=== PATIENT | male | born 1985 | race Caucasian/White ===

== ENCOUNTER 2018-10-31 18:16 | Inpatient (IN) | payer BC ==
[2018-10-31] MEDS ORDERED: Fentanyl 100 MCG/2 ML VIAL ONE ×2 (18:47→19:31)
[2018-10-31 19:19] LABS: #Basophils 0.1 thou/uL (0.0-0.2); #Eosinphils 0.2 thou/uL (0.0-0.7); #Lymphocytes 1.2 thou/uL (1.20-3.40); #Monocytes 0.7 thou/uL (0.11-0.59); #Neutrophils 14.6 thou/uL (1.40-6.50); %Basophils 0.3 % (0.0-1.0); %Eosinophils 1.4 % (0.0-10.0); %Lymphocytes 7.2 % (21.0-51.0); %Monocytes 4.2 % (0.0-10.0); %Neutrophils 86.8 % (42.0-75.0); Mean Corpuscular HGB CONC 32.9 g/dL (32.0-36.0); Mean Corpuscular Hemoglobin 29.1 pg (27.0-31.0); Mean Corpuscular Volume 88.4 fL (78.0-98.0); Mean Platelet Volume 7.8 fL (7.4-10.4); Platelet Count 303 thou/uL (130-400); RBC Distribution Width 12.1 % (11.5-14.5); Red Blood Cell (RBC) Count 5.15 mill/uL (4.70-6.10); White Blood Cell (WBC) Count 16.8 thou/uL (4.8-10.8)
[2018-10-31 19:30] LABS: INR-International Normal Ratio 0.9; Prothrombin Time 12.7 SEC (12.0-14.7)
[2018-10-31] MEDS ORDERED: Ondansetron PF 4 MG/2 ML Vial ONE (19:31)
--- NOTE | 2018-10-31 19:33 | RAD ---
RIGHT ANKLE THREE VIEWS: HISTORY: Trauma to ankle region. FINDINGS: There is a transversely oriented distal fibula fracture, which is slightly greater than one shaft-wid th displaced, and an obliquely oriented, slightly comminuted fracture involving the distal tibial sha ft. The fracture has an oblique orientation, beginning on the lateral side, with fracture along the more superolateral cortex, with fracture extension in an oblique fashion to near the metaphyseal lu on, on the medial side of the tibia. There is a small comminuted fragment present. IMPRESSION: Distal tibia and fibula fractures. POS: [facility]
[2018-10-31 19:40] LABS: ALT (SGPT) 22 U/L (8-55); AST (SGOT) 22 U/L (5-34); Albumin 4.7 g/dL (3.5-5.0); Alkaline Phosphatase 155 U/L (40-150); Anion Gap 13 mmol/L (10-20); BUN (Urea Nitrogen) 17 mg/dL (8.9-20.6); Bilirubin, Total 0.3 mg/dL (0.2-1.2); Calc. Creatinine Clearance 0 mL/min (70-130); Calcium 9.7 mg/dL (7.8-10.44); Carbon Dioxide 22 mmol/L (22-29); Chloride 106 mmol/L (98-107); Estimated GFR-MDRD 75; Globulin 2.4 g/dL (2.4-3.5); Glucose 124 mg/dL (70-105); Potassium 3.7 mmol/L (3.5-5.1); Protein, Total 7.1 g/dL (6.0-8.3); Sodium 137 mmol/L (136-145)
--- NOTE | 2018-10-31 20:51 | RAD ---
AP PELVIS: HISTORY: Trauma. FINDINGS: The pelvic ring is intact without evidence of fracture. There is no diastasis of the symphysis. IMPRESSION: Negative anterior-posterior pelvis. POS: [facility]
[2018-10-31] MEDS ORDERED: Dextrose 50% Abboject 50 ML SYRINGE SLOW IVP PRN (21:03)
[2018-10-31] MEDS ORDERED: hydrALAZINE 20 MG/ML VIAL SLOW IVP PRN (21:03)
[2018-10-31] MEDS ORDERED: Ondansetron PF 4 MG/2 ML Vial IVP PRN (21:03)
[2018-10-31] MEDS ORDERED: Promethazine HCl 25 MG/ML VIAL IM PRN (21:03)
[2018-10-31] MEDS ORDERED: Dextrose 5% in Water 1,000 ML IV PRN (21:03)
[2018-10-31] MEDS: Famotidine/PF 20 mg/2ml Vial SLOW IVP SCH (21:26)
[2018-10-31] MEDS: Senokot S 8.6-50 MG TAB PO SCH (21:26)
[2018-10-31] MEDS: Acetaminophen 1,000 MG in Premix Bag 1 BAG IVPB SCH (21:26)
[2018-10-31] MEDS ORDERED: Morphine 4 MG/ML VIAL SLOW IVP PRN (21:28)
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
[2018-10-31 23:20] VITALS: BMI 25.8
[2018-10-31] MEDS: Ketorolac Tromethamine 30 MG/ML VIAL IVP SCH (23:22)
[2018-10-31] MEDS: Sodium Chloride 0.9% 1,000 ML IV SCH (23:24)
[2018-10-31] MEDS: Morphine 4 MG/ML VIAL SLOW IVP PRN (23:24)
[2018-11-01] MEDS: Acetaminophen 1,000 MG in Premix Bag 1 BAG IVPB SCH ×4 (04:22→21:55)
[2018-11-01] MEDS: Sodium Chloride 0.9% 1,000 ML IV SCH ×2 (04:24→16:31)
[2018-11-01] MEDS: Ketorolac Tromethamine 30 MG/ML VIAL IVP SCH ×4 (05:30→23:48)
[2018-11-01] MEDS: Morphine 4 MG/ML VIAL SLOW IVP PRN ×3 (05:31→20:33)
[2018-11-01 06:59] LABS: #Eosinphils 0.2 thou/uL (0.0-0.7); #Monocytes 0.8 thou/uL (0.11-0.59); #Neutrophils 8.6 thou/uL (1.40-6.50); %Basophils 0.3 % (0.0-1.0); %Eosinophils 2.2 % (0.0-10.0); %Lymphocytes 9.8 % (21.0-51.0); %Monocytes 7.6 % (0.0-10.0); %Neutrophils 80.2 % (42.0-75.0); Hemoglobin 13.2 g/dL (14.0-18.0); Mean Corpuscular HGB CONC 32.6 g/dL (32.0-36.0); Mean Corpuscular Hemoglobin 28.8 pg (27.0-31.0); Mean Corpuscular Volume 88.3 fL (78.0-98.0); Mean Platelet Volume 8.2 fL (7.4-10.4); Platelet Count 241 thou/uL (130-400); RBC Distribution Width 12.3 % (11.5-14.5); Red Blood Cell (RBC) Count 4.57 mill/uL (4.70-6.10); White Blood Cell (WBC) Count 10.7 thou/uL (4.8-10.8)
[2018-11-01 07:14] LABS: Phosphorus 2.8 mg/dL (2.3-4.7)
[2018-11-01 07:17] LABS: Anion Gap 10 mmol/L (10-20); BUN (Urea Nitrogen) 16 mg/dL (8.9-20.6); Calc. Creatinine Clearance 113 mL/min (70-130); Calcium 8.6 mg/dL (7.8-10.44); Carbon Dioxide 24 mmol/L (22-29); Chloride 106 mmol/L (98-107); Estimated GFR-MDRD 88; Glucose 102 mg/dL (70-105); Magnesium 1.9 mg/dL (1.6-2.6); Potassium 3.9 mmol/L (3.5-5.1); Sodium 136 mmol/L (136-145)
[2018-11-01] MEDS ORDERED: CEFAZOLIN/Water 2 GM/20 ML SYRINGE SLOW IVP SCH (07:30)
[2018-11-01] MEDS ORDERED: CEFAZOLIN 2 GM/50 ML-DEXTROSE 2 GM in Premix Bag 1 BAG IVPB SCH (07:30)
[2018-11-01] MEDS: Famotidine/PF 20 mg/2ml Vial SLOW IVP SCH ×2 (09:26→20:38)
[2018-11-01] MEDS: Polyethylene Glycol 3350 17 GM Packet PO SCH (09:27)
[2018-11-01] MEDS: Senokot S 8.6-50 MG TAB PO SCH ×2 (09:27→20:38)
[2018-11-01] MEDS ORDERED: Lidocaine 1% PF 5 ML VIAL ONE (10:28)
[2018-11-01] MEDS ORDERED: Ondansetron PF 4 MG/2 ML Vial ONE ×2 (10:28→14:55)
[2018-11-01] MEDS ORDERED: PROPOFOL 200 MG/20 ML VIAL ONE (10:28)
--- NOTE | 2018-11-01 14:22 | PRG ---
DATE OF SERVICE: 11/01/2018 SUBJECTIVE: The patient is currently on the surgical floor. He is status post ground level fall in which he sustained a distal tibia and fibular fracture. He was admitted late last night. He has been n.p.o. after midnight. He is awaiting open reduction and internal fixation by Orthopedics. The patient denies any problems at this time. He states his pain is controlled. OBJECTIVE: VITAL SIGNS: Temperature is 97.8, heart rate is 71, blood pressure is 119/68, respirations are 16, oxygen saturation is 97% on room air. GENERAL: The patient is resting comfortably in bed. He is awake, alert, and oriented x3. [place] Coma Scale is 15. HEENT: Unremarkable. LUNGS: Clear to auscultation with good inspiratory and expiratory effort. HEART: Regular rate and rhythm. ABDOMEN: Soft, flat, and nontender with active bowel sounds. EXTREMITIES: Neurovascularly intact x4. Right lower extremity is immobilized in a posterior splint. LABORATORY FINDINGS: White blood cell count 10.7, hemoglobin 13.2, hematocrit 40.4, and platelets 241. Sodium 136, potassium 3.9, chloride 106, CO2 of 24, BUN 16, creatinine 0.97, glucose 102, magnesium 1.9, and phosphorus 2.8. There are no radiographs reviewed this morning. ASSESSMENT: 1. Status post fall. 2. Right distal tibia and fibular fracture. 3. Pain secondary to trauma. PLAN: Plan will be to continue n.p.o. status. Await surgical procedure. Postoperatively, we will have the patient to begin work with Physical and Occupational Therapy, switch him to p.o. pain medications, and likely discharge tomorrow. The patient was evaluated with Dr. Chadwick this morning during rounds. Job ID: [id number]
[2018-11-01] MEDS ORDERED: Fentanyl 100 MCG/2 ML VIAL ONE ×4 (14:54→19:12)
[2018-11-01] MEDS ORDERED: Promethazine HCl 25 MG/ML VIAL IM PRN (16:41)
[2018-11-01] MEDS ORDERED: Morphine Sulfate 2 MG/ML SYRINGE SLOW IVP PRN (16:41)
[2018-11-01] MEDS ORDERED: Ondansetron HCl/PF 4 MG/2 ML Vial IVP PRN (16:41)
[2018-11-01] MEDS ORDERED: Promethazine HCl 25 MG/ML VIAL SLOW IVP PRN (16:41)
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
[2018-11-01] MEDS ORDERED: Promethazine HCl 25 MG/ML VIAL ONE (19:39)
--- NOTE | 2018-11-01 19:52 | RAD ---
RIGHT TIBIA AND FIBULA TWO VIEWS: 11/01/18 HISTORY: Intraoperative films. This is a series of C-arm films which show plate and screws through the mid shaft of the fibula. Two screws are fixing a distal tibial fracture in place and there is what appears to be an external fixat ion device present. IMPRESSION: Postoperative changes of the right tibia and fibula. POS: [facility]
[2018-11-01] MEDS: CEFAZOLIN 2 GM/50 ML BAG IVPB SCH (21:55)
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
[2018-11-02] MEDS: Sodium Chloride 0.9% 1,000 ML IV SCH (01:07)
[2018-11-02] MEDS: Ketorolac Tromethamine 30 MG/ML VIAL IVP SCH (05:03)
[2018-11-02] MEDS: CEFAZOLIN 2 GM/50 ML BAG IVPB SCH ×2 (05:07→14:41)
[2018-11-02] MEDS: Cyclobenzaprine 10 MG TAB PO PRN ×3 (07:04→23:13)
[2018-11-02] MEDS ORDERED: traMADol HCl 50 MG TAB PO PRN (07:21)
[2018-11-02] MEDS ORDERED: Ibuprofen 600 MG TAB PO SCH ×2 (08:00→11:00)
[2018-11-02] MEDS: Senokot S 8.6-50 MG TAB PO SCH ×2 (09:16→20:18)
[2018-11-02] MEDS: Polyethylene Glycol 3350 17 GM Packet PO SCH (09:16)
[2018-11-02] MEDS: Famotidine/PF 20 mg/2ml Vial SLOW IVP SCH (09:17)
[2018-11-02] MEDS: Acetaminophen 325 MG TAB PO SCH ×3 (09:17→20:17)
[2018-11-02] MEDS: traMADol HCl 50 MG TAB PO PRN (09:26)
[2018-11-02] MEDS: Enoxaparin Sodium 40 MG/0.4 ML SYRINGE SC SCH (11:07)
--- NOTE | 2018-11-02 14:08 | PRG ---
DATE OF SERVICE: 11/02/2018 SUBJECTIVE: The patient is postoperative day 1, hospital day 2, status post a fall, in which he sustained a distal tibia and fibular fracture. Yesterday, the patient underwent external fixator placement for these complex fractures. He tolerated this well. Overnight, he had no issues. His pain is controlled. He is tolerating a diet and is awaiting physical and occupational therapy. The patient is due for 1 more dose of IV antibiotics and will most likely be discharged home tomorrow. PHYSICAL EXAMINATION: VITAL SIGNS: Temperature is 97.8, heart rate 78, blood pressure 124/78, respirations 16, and oxygen saturation 96% on room air. GENERAL: The patient is resting comfortably in bed. He is awake, alert, and oriented x3. [place] Coma Scale is 15. HEENT: Unremarkable. LUNGS: Clear to auscultation with good inspiratory and expiratory effort. HEART: Regular rate and rhythm. ABDOMEN: Soft, flat, and nontender with active bowel sounds. EXTREMITIES: Neurovascularly intact x4. Right lower extremity has external fixator in place with a dressing, which is clean, dry, and intact. LABORATORY DATA: There are no labs or radiographs to review this morning. ASSESSMENT AND PLAN: 1. Status post ground-level fall. 2. Right complex, comminuted distal tibia and fibular fracture, status post external fixator placement. Plan will be to continue supportive care, physical and occupational therapy, then likely discharge home tomorrow. The patient was evaluated with Dr. Chadwick this morning during rounds. Job ID: [id number]
[2018-11-02] MEDS ORDERED: Ibuprofen 200 MG TAB PO SCH (15:00)
[2018-11-02] MEDS: Ibuprofen 200 MG TAB PO SCH ×2 (17:29→23:12)
[2018-11-02] MEDS: Famotidine 20 MG TAB PO SCH (20:17)
[2018-11-03] MEDS: Acetaminophen 325 MG TAB PO SCH ×3 (02:14→14:05)
[2018-11-03] MEDS: Ibuprofen 200 MG TAB PO SCH ×2 (05:03→10:47)
[2018-11-03] MEDS: Polyethylene Glycol 3350 17 GM Packet PO SCH (08:23)
[2018-11-03] MEDS: Enoxaparin Sodium 40 MG/0.4 ML SYRINGE SC SCH (08:23)
[2018-11-03] MEDS: Famotidine 20 MG TAB PO SCH (08:23)
[2018-11-03] MEDS: Senokot S 8.6-50 MG TAB PO SCH (08:23)
[2018-11-03] MEDS: traMADol HCl 50 MG TAB PO PRN ×2 (08:25→15:06)
[2018-11-03 15:53] VITALS: BP 129/81; TEMP 97.7
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
== END 2018-11-03 16:52 | disposition home or self-care (01) | DRG 494 ==
LOC: ERS 18:16 → SURG A 20:57
PROVIDERS: ADMIT Specialist; ATTEND Specialist
PROC: 0QSJ04Z Reposition Right Fibula with Internal Fixation Device, Open Approach (ICD-10-PCS; principal; 2018-11-01)
PROC: 0QSG34Z Reposition Right Tibia with Internal Fixation Device, Percutaneous Approach (ICD-10-PCS; 2018-11-01)
PROC: 0QHG35Z Insertion of External Fixation Device into Right Tibia, Percutaneous Approach (ICD-10-PCS; 2018-11-01)
DX: S82.251A Displaced comminuted fracture of shaft of right tibia, initial encounter for closed fracture (principal); S82.831A Other fracture of upper and lower end of right fibula, initial encounter for closed fracture; Z90.49 Acquired absence of other specified parts of digestive tract; Z90.89 Acquired absence of other organs; Z98.890 Other specified postprocedural states; W17.89XA Other fall from one level to another, initial encounter
CPT/HCPCS: 29515; 36415; 72170; 76000; 80048; 80053; 83735; 84100; 85025; 85610; 85730; 96374; 96375; 96376; C1713; G0390; J0131; J1650; J1885; J2001; J2270; J2405; J2550; J2704; J3010; S0028

== ENCOUNTER 2018-11-25 06:06 | Day surgery (SDC) | payer BC ==
[2018-11-24 11:45] VITALS: BMI 26.4
[2018-11-25] MEDS ORDERED: Fentanyl 100 MCG/2 ML VIAL ONE ×3 (06:21→10:13)
[2018-11-25] MEDS ORDERED: Lidocaine 1% (PF) 30 ML VIAL ONE (06:29)
[2018-11-25] MEDS ORDERED: Bupivacaine/Epinephrine 0.25% 30 ML VIAL ONE (07:48)
[2018-11-25] MEDS ORDERED: Bupivacaine HCl 0.5%/Epinephrine 1:200,000/PF 30 ml Vial ONE (07:48)
[2018-11-25] MEDS ORDERED: Fentanyl 250 MCG/5 ML VIAL ONE (08:08)
[2018-11-25] MEDS ORDERED: Morphine 4 MG/ML VIAL ONE (10:00)
[2018-11-25] MEDS ORDERED: HYDROmorphone 2 MG/ML VIAL ONE (10:35)
--- NOTE | 2018-11-25 11:11 | OP ---
DATE OF PROCEDURE: 11/25/2018 PREOPERATIVE DIAGNOSIS: Right distal tib-fib fracture, status post open reduction and internal fixation right fibula with application of spanning external fixator, right ankle and tibia. POSTOPERATIVE DIAGNOSIS: Right distal tib-fib fracture, status post open reduction and internal fixation right fibula with application of spanning external fixator, right ankle and tibia. PROCEDURES PERFORMED: 1. Open reduction and internal fixation, right distal tibia. 2. Removal of external fixator, right tibia. 3. Irrigation and debridement of the external fixator pin sites. ANESTHESIA: General. STAFFING RN: Stacie Ramirez PA-C TOURNIQUET TIME: 71 minutes at 300 mmHg. IMPLANT: Synthes 2.7/3.5 variable angle LCP distal medial tibial plate. SPECIMEN: External fixator removed. COMPLICATIONS: None. DRAINS: None. OUTCOME: Near-anatomic alignment. INDICATIONS: The patient is a pleasant 33-year-old gentleman who is status post right distal tibia fracture with fibula fracture approximately 3 weeks ago. The patient was found to have severe swelling and significant thinning of the medial skin at the ankle and as such, the fibula was plated at the time of initial injury and the tibia treated with a spanning external fixator. The patient now has skin that has recovered from the initial trauma and as such, is scheduled for a definitive open reduction and internal fixation procedure with removal of external fixator. Informed consent has been obtained. I believe all questions have been answered. DESCRIPTION OF PROCEDURE: The patient was brought to the operating room and a time-out performed followed by induction of general anesthesia. The patient was positioned supine on the OR table. Then, examination under fluoroscopy was performed that showed a fracture that was near anatomically aligned with two previously placed interfragmentary compression screws and the external fixator in place. At this time, it was opted to proceed with removal of the external fixator. This was done with a Betadine prep around each of the pin sites and then simple removal of the pins and the frame. Next, a sterile prep and drape was performed of the right lower extremity. The limb was then exsanguinated with Esmarch bandage, tourniquet inflated to 300 mmHg. A vertical incision was made extending from the tip of the medial malleolus proximally for approximately 2.5 inches after skin was sharply incised. Dissection was carried down bluntly until the saphenous vein was identified. Small branches were coagulated with electrocautery and then the vein reflected anteriorly. The dissection was then carried down to the periosteum of the distal tibia. Next, an appropriate length plate was passed from this incision, passing it subcutaneously along the border of the medial tibia under fluoroscopic guidance. Once appropriately positioned, a total of 5 locking screws were applied distally and then using multiple small puncture wounds proximally, a total of five 3.5 mm cortical screws placed proximally. This provided good stabilization of the fracture in addition to the two previously placed interfragmentary compression screws. At the completion of this, final images were obtained that showed good alignment of the fracture and appropriate positioning of the hardware. The pin sites from the external fixator were then thoroughly cleaned with a combination of curette, freeing up the holes of any fibrinous exudate and then bulb syringe to further clean them. At the end of the procedure, precious were used to close the pin sites along with the small puncture wounds for the proximal screw placement and then the distal wound was then infiltrated with 0.5% Marcaine and then a Xeroform gauze, Webril, and posterior fiberglass splint was applied to the leg. Tourniquet was let down with total time of 71 minutes and the patient was transferred to recovery room in stable condition. There were no complications. He tolerated the procedure well. Job ID: [id number]
[2018-11-25] MEDS ORDERED: HYDROcodone/Acetaminophen 5/325 mg Tablet ONE (12:01)
[2018-11-25] MEDS ORDERED: Promethazine HCl 25 MG/ML VIAL ONE (12:25)
[2018-11-25] MEDS ORDERED: diphenhydrAMINE 25 MG CAP ONE (13:21)
[2018-11-25] MEDS ORDERED: diphenhydrAMINE 50 MG/ML VIAL ONE (13:21)
--- NOTE | 2018-11-25 13:49 | RAD ---
INTRAOPERATIVE FLUOROSCOPY: HISTORY: ORIF. EXPOSURE: 34.7 seconds 0.76 mGy FINDINGS: Three intraoperative fluoroscopic images demonstrate placement of a sideplate with screws along the d istal tibia and fibula. Fracture lucency is noted. IMPRESSION: Fluoroscopy as above. POS: [facility]
[2018-11-25] MEDS ORDERED: Dexamethasone 20 MG/5 ML VIAL ONE (14:20)
[2018-11-25] MEDS ORDERED: Lidocaine 1% PF 5 ML VIAL ONE (14:20)
[2018-11-25] MEDS ORDERED: Ondansetron PF 4 MG/2 ML Vial ONE (14:20)
[2018-11-25] MEDS ORDERED: PROPOFOL 200 MG/20 ML VIAL ONE (14:20)
[2018-11-25] MEDS ORDERED: Ketorolac Tromethamine 30 MG/ML VIAL ONE (14:20)
== END 2018-11-25 14:15 | disposition home or self-care (01) ==
LOC: SDC 06:06
PROVIDERS: ATTEND Orthopaedic Surgery
PROC: 0QSG04Z Reposition Right Tibia with Internal Fixation Device, Open Approach (ICD-10-PCS; principal; 2018-11-25)
PROC: 0QPGX5Z Removal of External Fixation Device from Right Tibia, External Approach (ICD-10-PCS; principal; 2018-11-25)
DX: S82.51XA Displaced fracture of medial malleolus of right tibia, initial encounter for closed fracture (principal); Z91.018 Allergy to other foods; Z79.899 Other long term (current) drug therapy
CPT/HCPCS: 76000; J0670; J1100; J1170; J1200; J1885; J2001; J2270; J2405; J2550; J2704; J3010; Q0163

== ENCOUNTER 2019-03-27 12:41 | Observation (INO) | payer BC ==
[~2019-03-27 12:41] MED LIST: Dexamethasone 20 MG/5 ML VIAL ONE; Lidocaine 1% PF 5 ML VIAL ONE; Ondansetron PF 4 MG/2 ML Vial ONE; PROPOFOL 200 MG/20 ML VIAL ONE
[2019-03-27] MEDS ORDERED: Midazolam HCl 2 mg/2 ml Vial ONE ×2 (13:26→13:30)
[2019-03-27] MEDS ORDERED: Scopolamine 1.5 mg/72 hour Patch ONE (13:27)
[2019-03-27] MEDS ORDERED: Fentanyl 100 MCG/2 ML VIAL ONE ×5 (13:30→17:37)
[2019-03-27] MEDS ORDERED: Morphine 2 MG/ML SYRINGE SLOW IVP PRN (14:51)
[2019-03-27] MEDS ORDERED: Ondansetron PF 4 MG/2 ML Vial SLOW IVP PRN (14:51)
--- NOTE | 2019-03-27 15:14 | RAD ---
TWO VIEWS OF THE RIGHT TIBIA/FIBULA: COMPARISON: 11/01/2018. HISTORY: Status post ORIF of the distal fibula fracture. Hardware removal. FINDINGS/IMPRESSION: Two limited intraoperative fluoroscopic views of the distal right tibia/fibula were submitted for int erpretation. A plate and screws and still seen in the distal fibula. The screws seen in the tibia h ave been removed. POS: [facility]
[2019-03-27] MEDS ORDERED: Promethazine HCl 25 MG/ML VIAL IM PRN (16:27)
[2019-03-27] MEDS ORDERED: Ondansetron HCl/PF 4 MG/2 ML Vial IVP PRN (16:27)
[2019-03-27] MEDS ORDERED: Promethazine HCl 25 MG/ML VIAL SLOW IVP PRN (16:27)
[2019-03-27] MEDS ORDERED: Vancomycin HCl 1 GM in Premix Bag 1 BAG IVPB SCH (21:00)
--- NOTE | 2019-03-27 21:42 | OP ---
DATE OF PROCEDURE: 03/27/2019 PREOPERATIVE DIAGNOSIS: Infected right distal medial tibial plate. POSTOPERATIVE DIAGNOSIS: Infected right distal medial tibial plate. PROCEDURES PERFORMED: 1. Removal of hardware, right distal tibia. 2. Irrigation and debridement, right lower leg. ANESTHESIA: General. COAT EXAMINER: Kash Ruano PA-C. TOURNIQUET TIME: Approximately 60 minutes at 300 mmHg. SPECIMEN: Explanted hardware as well as swab x2 for culture Gram stain. COMPLICATIONS: Infection. DRAINS: None. OUTCOME: Successful removal of hardware and irrigation and debridement of nonviable tissue, right lower leg. INDICATIONS FOR PROCEDURE: Mr. Toscano is a 34-year-old gentleman status post right distal medial fracture, treated initially with an external fixator and then converted to open reduction and internal fixation. The patient has recently gone on to union, but starting approximately 2 weeks ago had some irritation at the proximal medial aspect of the lower leg. This has gone on to develop a wound dehiscence at one of the small stab wounds from the proximal screw holes. With this drainage and some purulent material, we are now proceeding to the operating room for hardware removal and irrigation and debridement from the right tibia. Informed consent has been obtained, I believe all questions answered. DESCRIPTION OF PROCEDURE: The patient was brought to the operating room and a time-out performed followed by induction of general anesthesia. Next, following the sterile prep and drape, the limb was elevated and tourniquet inflated to 300 mmHg. Next, a vertical incision was made following the scar from the hardware placement. After the skin was sharply incised, dissection was carried down bluntly exposing the distal end of the plate. Five small stab wounds were then made further proximally reflecting the insertion sites from the screws in the proximal plate. Next, the locking screws were removed from the distal end of the plate under direct visualization and then the more proximal screws removed by feel from the plate. Once all the hardware had been removed from the plate, the plate was removed without difficulty. Two additional small stab wounds were placed anteriorly, this reflecting the interfragmentary compression screws were applied at the time of his application of external fixator. These two screws were also removed without difficulty. Once all the hardware had been removed, AP, lateral, and C-arm images were obtained to confirm successful removal of all tibial hardware and then the wounds were irrigated with 3 L of normal saline using Pulsavac. It should be noted that prior to this irrigation procedure that swabs were used to swab the one track of infection as well as the screw hole just distal to this. Following the irrigation, no further nonviable tissue was encountered. The wounds were closed with 0 Vicryl, 2-0 Vicryl, and nylon for the longitudinal incision. The small stab wounds closed with simple nylon suture. Xeroform gauze, Webril, and a fiberglass splint were applied and then the patient was transferred to the recovery room in stable condition. There were no complications. Tourniquet was let down at the completion of dressing. Job ID: [id number]
[2019-03-27] MEDS: Aspirin 81 mg Enteric Coated Tablet PO SCH (22:00)
[2019-03-27] MEDS: CEFAZOLIN 2 GM in Premix Bag 1 BAG IVPB SCH (22:00)
[2019-03-27] MEDS: HYDROcodone/Acetaminophen 10/325 mg Tablet PO PRN (22:01)
[2019-03-27 22:26] VITALS: BMI 26.1
[2019-03-27] MEDS: Vancomycin HCl 1.25 GM in Sodium Chloride 0.9% 250 ML 250 ML IVPB SCH (23:51)
[2019-03-28] MEDS: HYDROcodone/Acetaminophen 10/325 mg Tablet PO PRN ×4 (02:59→17:32)
[2019-03-28] MEDS: CEFAZOLIN 2 GM in Premix Bag 1 BAG IVPB SCH ×2 (05:32→15:21)
[2019-03-28 06:21] LABS: #Basophils 0.1 thou/uL (0.0-0.2); #Lymphocytes 0.9 thou/uL (1.20-3.40); #Monocytes 0.8 thou/uL (0.11-0.59); #Neutrophils 11.5 thou/uL (1.40-6.50); %Basophils 0.8 % (0.0-1.0); %Eosinophils 0.2 % (0.0-10.0); %Monocytes 5.9 % (0.0-10.0); %Neutrophils 86.2 % (42.0-75.0); Hemoglobin 13.1 g/dL (14.0-18.0); Mean Corpuscular HGB CONC 32.9 g/dL (32.0-36.0); Mean Corpuscular Hemoglobin 28.8 pg (27.0-31.0); Mean Corpuscular Volume 87.5 fL (78.0-98.0); Mean Platelet Volume 7.6 fL (7.4-10.4); Platelet Count 323 thou/uL (130-400); Red Blood Cell (RBC) Count 4.55 mill/uL (4.70-6.10); White Blood Cell (WBC) Count 13.4 thou/uL (4.8-10.8)
[2019-03-28] MEDS: Aspirin 81 mg Enteric Coated Tablet PO SCH (08:42)
[2019-03-28] MEDS: Vancomycin HCl 1.25 GM in Sodium Chloride 0.9% 250 ML 250 ML IVPB SCH (13:01)
[2019-03-28 19:22] VITALS: BP 138/79; TEMP 98.3
== END 2019-03-28 19:35 | disposition home or self-care (01) ==
LOC: SDC 12:41 → SJJU 14:51
PROVIDERS: ADMIT Orthopaedic Surgery; ATTEND Orthopaedic Surgery
PROC: 0QPG04Z Removal of Internal Fixation Device from Right Tibia, Open Approach (ICD-10-PCS; principal; 2019-03-28)
DX: T84.622A Infection and inflammatory reaction due to internal fixation device of right tibia, initial encounter (principal); B95.61 Methicillin susceptible Staphylococcus aureus infection as the cause of diseases classified elsewhere; Z79.2 Long term (current) use of antibiotics; Z91.018 Allergy to other foods; Z91.02 Food additives allergy status; Z98.890 Other specified postprocedural states
CPT/HCPCS: 36415; 76000; 85025; 87070; 87077; 87186; 87205; 96361; 96365; 96366; 96367; 96376; G0378; J0690; J1100; J2001; J2250; J2405; J2704; J3010; J3370; J7050

== ENCOUNTER 2021-01-30 08:28 | Outpatient (CLI) | payer OTHER | END 2021-01-30 08:29 | disposition home or self-care (01) | LOC: ULT 08:28 | PROVIDERS: ATTEND Internal Medicine Gastroenterology | DX: R74.8 Abnormal levels of other serum enzymes (principal); K76.0 Fatty (change of) liver, not elsewhere classified; K80.20 Calculus of gallbladder without cholecystitis without obstruction | CPT/HCPCS: 76705 ==

== ENCOUNTER 2021-02-18 07:40 | Outpatient (CLI) | payer OTHER ==
[2021-02-18 10:06] LABS: #Basophils 0.1 10x3/uL (0.0-0.2); #Eosinphils 0.4 10x3/uL (0.0-0.5); #Monocytes 0.5 10x3/uL (0.0-1.1); #Neutrophils 5.6 10x3/uL (1.5-8.4); %Basophils 0.9 % (0.0-2.0); %Eosinophils 4.5 % (0.0-6.0); %Lymphocytes 17.2 % (18.0-47.0); Hemoglobin 15.3 g/dL (13.5-17.5); Mean Corpuscular HGB CONC 32.5 g/dL (32.0-36.0); Mean Corpuscular Hemoglobin 28.3 pg (27.0-33.0); Mean Corpuscular Volume 87.2 fl (81.2-95.1); Mean Platelet Volume 10.9 fl (7.4-10.4); Platelet Count 300 10x3/uL (150-450); White Blood Cell (WBC) Count 7.9 10x3/uL (3.5-10.5)
[2021-02-18 10:28] LABS: ALT (SGPT) 20 U/L (8-55); AST (SGOT) 22 U/L (5-34); Albumin 4.5 g/dL (3.5-5.0); Alkaline Phosphatase 147 U/L (40-110); Anion Gap 15 mmol/L (10-20); BUN (Urea Nitrogen) 13 mg/dL (8.9-20.6); Bilirubin, Direct 0.2 mg/dL (0.1-0.3); Bilirubin, Total 0.5 mg/dL (0.2-1.2); Calc. Creatinine Clearance 0 mL/min (70-130); Calcium 9.7 mg/dL (7.8-10.44); Carbon Dioxide 25 mmol/L (22-29); Chloride 106 mmol/L (98-107); Globulin 2.4 g/dL (2.4-3.5); Glucose 100 mg/dL (70-105); Potassium 4.2 mmol/L (3.5-5.1); Protein, Total 6.9 g/dL (6.0-8.3); Sodium 142 mmol/L (136-145)
[2021-02-19 07:11] LABS: SARS-CoV-2 NAA Rapid Test Not Detected (NotDetected)
== END 2021-02-18 07:41 | disposition home or self-care (01) ==
LOC: LABBT 07:40
PROVIDERS: ATTEND Surgery
DX: Z01.812 Encounter for preprocedural laboratory examination (principal); K80.20 Calculus of gallbladder without cholecystitis without obstruction; Z20.822 Contact with and (suspected) exposure to COVID-19
CPT/HCPCS: 80053; 80076; 85025; U0002; U0005

== ENCOUNTER 2021-02-21 08:32 | Day surgery (SDC) | payer OTHER ==
[2021-02-19 14:33] VITALS: BMI 28.0
[2021-02-21] MEDS ORDERED: cefOXitin Sodium/Dextrose 2 GM/50 ML BAG ONE (08:52)
[2021-02-21] MEDS ORDERED: Lidocaine 1% w/Epinephrine 1:100K 20 ML VIAL ONE (11:08)
[2021-02-21] MEDS ORDERED: Bupivacaine 0.25% HCL 30 ML VIAL ONE (11:08)
[2021-02-21] MEDS ORDERED: Midazolam HCl 2 mg/2 ml Vial ONE (11:09)
[2021-02-21] MEDS ORDERED: Fentanyl 100 MCG/2 ML VIAL ONE ×2 (11:09→13:00)
[2021-02-21] MEDS ORDERED: Rocuronium Bromide 10 MG/ML (10ML VIAL) ONE (11:17)
[2021-02-21] MEDS ORDERED: diphenhydrAMINE 50 MG/ML VIAL ONE (11:17)
[2021-02-21] MEDS ORDERED: ePHEDrine Sulfate 50 MG/10 ML VIAL ONE (11:17)
[2021-02-21] MEDS ORDERED: Ketorolac Tromethamine 30 MG/ML VIAL ONE (11:17)
[2021-02-21] MEDS ORDERED: Glycopyrrolate 0.2 MG/ML 5 ML SYRINGE ONE (11:17)
[2021-02-21] MEDS ORDERED: Dexamethasone 20 MG/5 ML VIAL ONE (11:17)
[2021-02-21] MEDS ORDERED: PROPOFOL 200 MG/20 ML VIAL ONE (11:17)
[2021-02-21] MEDS ORDERED: Ondansetron PF 4 MG/2 ML Vial ONE (11:17)
[2021-02-21] MEDS ORDERED: SUGAMMADEX SODIUM 200 MG/2 ML VIAL ONE (12:04)
== END 2021-02-21 15:03 | disposition home or self-care (01) ==
LOC: SDC 08:32
PROVIDERS: ATTEND Surgery
PROC: 0FT44ZZ Resection of Gallbladder, Percutaneous Endoscopic Approach (ICD-10-PCS; principal; 2021-02-21)
DX: K80.10 Calculus of gallbladder with chronic cholecystitis without obstruction (principal); Z79.51 Long term (current) use of inhaled steroids; Z79.899 Other long term (current) drug therapy; Z91.018 Allergy to other foods
CPT/HCPCS: 88304; J0694; J1100; J1200; J1885; J2250; J2405; J2704; J3010; S0020